=== PATIENT | female | born 1980 | race Caucasian/White ===

== ENCOUNTER 2017-01-24 18:43 | Emergency (ER) | payer OTHER ==
[~2017-01-24] VITALS: Ht 175.3 cm; Wt 72.6 kg
--- NOTE | 2017-01-24 19:15 | NUR ---
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 c/o severe, 7-01/09, neck/upper back pain and numbness in right hand. Pt denies CP, SOB, dizziness, no other complaints, minor distress noted.
[2017-01-24] MEDS ORDERED: KETOROLAC TROMETHAMINE 60 MG INJ IM ONE ×2 (19:30→19:45)
[2017-01-24] MEDS ORDERED: ONDANSETRON ODT 4 MG TAB.RAPDIS SL ONE (19:30)
[2017-01-24] MEDS ORDERED: ONDANSETRON ODT 4 MG TAB.RAPDIS ONE (19:45)
--- NOTE | 2017-01-24 19:51 | NUR ---
Pt Given RX and d/c instructions, verbalized understanding.
== END 2017-01-24 19:52 | disposition home or self-care (01) ==
LOC: ER 18:44
DX: G43.909 Migraine, unspecified, not intractable, without status migrainosus (principal); M54.9 Dorsalgia, unspecified; F17.200 Nicotine dependence, unspecified, uncomplicated; F41.9 Anxiety disorder, unspecified
CPT/HCPCS: 96372; 99283; 99406; A4663; J1885; Q0162

== ENCOUNTER 2017-09-15 04:32 | Emergency (ER) | payer OTHER ==
[~2017-09-15] VITALS: Ht 175.3 cm; Wt 70.3 kg
--- NOTE | 2017-09-15 05:55 | NUR ---
Patient discharged to home in stable conditon. Written and verbal after care instructions given. Patient verbalizes understanding of instructions. Patient able to ambulate unassisted with steady gait. Patient left with all belongings.
[2017-09-15 05:58] VITALS: BP 142/82
[2017-09-15] MEDS ORDERED: predniSONE 50 MG TABLET PO ONE (06:00)
== END 2017-09-15 05:55 | disposition home or self-care (01) ==
LOC: ER 04:32
DX: J45.909 Unspecified asthma, uncomplicated (principal); F41.9 Anxiety disorder, unspecified; F17.210 Nicotine dependence, cigarettes, uncomplicated
CPT/HCPCS: 71045; 99284; A4663